=== PATIENT | male | born 1955 | race Caucasian/White ===

== ENCOUNTER 2022-03-26 01:05 | Day surgery (SDC) | payer MEDICARE, SELFPAY ==
[2022-03-13 14:20] VITALS: BMI 24.5
[2022-03-26 08:16] VITALS: BP 181/91; PULSE 73; RESP 18; TEMP 36.4; O2SAT 100
[2022-03-26] MEDS: LACTATED RINGERS 1,000 ML 150 ML IV CONT (08:21)
--- NOTE | 2022-03-26 09:12 | WPDANESEPPF ---
Anes - Initial Pre Proc Eval Procedure: Operation Date: 03/26/22 09:30 Proposed Procedures p Screening Colonoscopy - Ramy Bui MD Date/Time: 03/26/22 09:12 Surgeon: Ramy Bui MD Pre Op Diagnosis: neoplasm screening Patient Data Age: 67 Gender: M Height: 1.8 m Weight: 79.2 kg Last Vital Signs Temp 97.6 F 03/26/22 08:16 Pulse 73 03/26/22 08:16 Resp 18 03/26/22 08:16 BP 181/91 H 03/26/22 08:16 Pulse Ox 100 03/26/22 08:16 Allergies Allergy/AdvReac Type Severity Reaction Status Date / Time No Known Allergies Allergy Verified 03/26/22 08:15 Home Medications Medication Instructions Recorded Confirmed Type glucos sul [id number] 1 tab-cap PO DAILY 01/18/22 03/26/22 History [Glucosamine Chondroitin] lisinopril 10 mg tablet 10 mg PO DAILY #30 tablet 01/18/22 03/26/22 Rx multivitamin 1 tablet PO DAILY 01/18/22 03/26/22 History Patient hx anesthesia problems: none Family hx anesthesia problems: none Results Review: All pre-operative results and documents have been reviewed as part of the pre-operative evaluation. [facility] Past Medical History Medical History (Updated 01/18/22 @ 14:11 by Carmina Duran NP) Arthritis pain, hand BMI 25.0-25.9,adult Colon cancer screening Encounter to establish care Excess exposure to sun Hypertension Low back pain Nocturia Paresthesia Skin lesion of face Surgical History Surgical History (Updated 01/18/22 @ 13:20 by Daniel Chavira CMA) History of vasectomy Hx of varicose vein stripping Family History Family History (Updated 07/28/14 @ 07:13 by DOCTOR UNKNOWN) Father Cerebrovascular accident Family history of coronary artery disease Social History Social History (Updated 01/18/22 @ 13:07 by Daniel Chavira CMA) Smoking packs per day: 1 Smoking cigarettes per day: 20.0 Years smoked: 16 Smoking pack-years: 16.00 Smoking status: Former smoker Tobacco type: cigarettes Alcohol intake: never Substance use: never Substance use type: does not use Living arrangements: with family Spiritual care concerns: No Anes - Eval Final PreProcedure Day of Procedure 03/26/22 09:12 Patient weight: normal Heart: regular rate and rhythm Lungs: clear to auscultation Airway: Mallampati scale class II Neurological: alert and oriented Last oral intake: >/= 8 hours ASA classification: II Emergent: no Anesthetic plan: proceed Anesthesia type and monitoring: general GIVS and standard monitoring Results Review: All pre-operative results and documents have been reviewed as part of the pre-operative evaluation. Informed Consent: The patient's anesthetic plan and its attendant risks and benefits were discussed with the patient/family/POA. Questions were solicited and answers provided to the satisfaction of the patient/family/POA.
--- NOTE | 2022-03-26 09:30 | PM.HPGS ---
History of Present Illness History of Present Illness Consent: Risks, benefits, and alternatives have been discussed and questions answered. Patient agrees to proceed with procedure. Chief complaint: neoplasm screening Narrative: Veto Gonzáles is a 67 year old male here for first screening colonoscopy Review of Systems Constitutional: Constitutional: Denies headache(s) and Denies weakness Eyes: Eyes: Denies blurry vision ENT: Reports Normal hearing present, Denies headache(s) and Denies neck pain Cardiovascular: Cardiovascular: Denies chest pain and Denies dyspnea Respiratory: Respiratory: Denies dyspnea Gastrointestinal: Gastrointestinal: Reports no additional gastrointestinal complaints Genitourinary: Genitourinary: Denies dysuria Musculoskeletal: Musculoskeletal: Denies neck pain Integumentary/Breasts: Skin/Breast: Denies dry skin Neurologic: Reports Normal hearing present, Denies headache(s) and Denies weakness Psychiatric: Psychiatric: Denies anxiety Endocrine: Endocrine: Denies change in body appearance Hematologic/Lymphatic: Hematologic/Lymphatic: Denies easy bleeding Allergic/Immunologic: Allergic/Immunologic: Denies urticaria PMF Past Medical History Medical History (Updated 01/18/22 @ 14:11 by Carmina Duran NP) Arthritis pain, hand BMI 25.0-25.9,adult Colon cancer screening Encounter to establish care Excess exposure to sun Hypertension Low back pain Nocturia Paresthesia Skin lesion of face Surgical History Surgical History (Updated 01/18/22 @ 13:20 by Daniel Chavira CMA) History of vasectomy Hx of varicose vein stripping Family History Family History (Updated 07/28/14 @ 07:13 by DOCTOR UNKNOWN) Father Cerebrovascular accident Family history of coronary artery disease Social History Social History (Updated 01/18/22 @ 13:07 by Daniel Chavira CMA) Smoking packs per day: 1 Smoking cigarettes per day: 20.0 Years smoked: 16 Smoking pack-years: 16.00 Smoking status: Former smoker Tobacco type: cigarettes Alcohol intake: never Substance use: never Substance use type: does not use Living arrangements: with family Spiritual care concerns: No Meds Home Medications and Allergies Home Medications Medication Instructions Recorded Confirmed Type glucos sul [id number] 1 tab-cap PO DAILY 01/18/22 03/26/22 History [Glucosamine Chondroitin] lisinopril 10 mg tablet 10 mg PO DAILY #30 tablet 01/18/22 03/26/22 Rx multivitamin 1 tablet PO DAILY 01/18/22 03/26/22 History Allergies Allergy/AdvReac Type Severity Reaction Status Date / Time No Known Allergies Allergy Verified 03/26/22 08:15 Vital Signs Vital Signs - 24 hr 03/26/22 08:16 Temperature 97.6 F Pulse Rate 73 Respiratory Rate 18 Blood Pressure 181/91 H Pulse Oximetry 100 Exam Const: General: comfortable and no acute distress HENMT: General nose exam: Normal nares present Eyes: General: appearance normal, both eyes and all related structures Neck: Neck: no JVD Resp: Auscultation: clear to auscultation bilaterally Cardio: Rate: regular rate Rhythm: regular rhythm GI: Inspection: non-distended GI Palp: Yes Soft to palpation Skin: General skin exam: normal color Neuro: General: gait normal Speech: normal speech Extrem: General: normal to inspection Psych: Mental Status: mental status grossly normal Assessment and Plan Assessment and plan (1) Colon cancer screening: Code(s): Z12.11 - Encounter for screening for malignant neoplasm of colon Status: Acute Assessment and Plan: colonoscopy
[2022-03-26 09:49] VITALS: BP 111/67; PULSE 62; RESP 18; O2SAT 99
[2022-03-26 09:59] VITALS: BP 114/75; PULSE 61; RESP 20; O2SAT 98
[2022-03-26 10:09] VITALS: BP 132/82; PULSE 60; RESP 17; O2SAT 100
== END 2022-03-26 10:28 | disposition home or self-care (01) ==
PROVIDERS: PCP Nurse Practitioner Family; Visit Provider Internal Medicine Gastroenterology
PROC: 0DJD8ZZ Inspection of Lower Intestinal Tract, Via Natural or Artificial Opening Endoscopic (ICD-10-PCS; CPT 45378; principal; 2022-03-26 09:30)
DX: Z12.11 Encounter for screening for malignant neoplasm of colon (principal); K63.5 Polyp of colon; K57.30 Diverticulosis of large intestine without perforation or abscess without bleeding; K64.8 Other hemorrhoids; I10 Essential (primary) hypertension; Z87.891 Personal history of nicotine dependence
CPT/HCPCS: 45385; 88305; J2704; J7120